=== PATIENT | male | born 1965 | race Caucasian/White ===

== ENCOUNTER 2020-11-25 06:00 | Outpatient (RCR) | payer OTHER, SELFPAY | END 2020-12-11 23:59 | disposition home or self-care (01) | LOC: GPT 06:00 | PROVIDERS: PCP Family Medicine; Referring Provider Family Medicine; Visit Provider Family Medicine | DX: M54.12 Radiculopathy, cervical region (principal); S39.013D Strain of muscle, fascia and tendon of pelvis, subsequent encounter; X58.XXXD Exposure to other specified factors, subsequent encounter | CPT/HCPCS: 97110; 97140; 97162; 97530 ==

== ENCOUNTER 2020-12-12 06:00 | Outpatient (RCR) | payer OTHER, SELFPAY | END 2021-01-11 23:59 | disposition home or self-care (01) | LOC: GPT 06:00 | PROVIDERS: PCP Family Medicine; Referring Provider Family Medicine; Visit Provider Family Medicine | DX: M54.12 Radiculopathy, cervical region (principal) | CPT/HCPCS: 97110; 97140; 97530 ==

== ENCOUNTER 2021-02-09 12:19 | Outpatient (CLI) | payer OTHER, SELFPAY ==
--- NOTE | 2021-02-09 13:18 | MR_ITS ---
WS: [id number] MRI CERVICAL SPINE NONCONTRAST TECHNIQUE: Sagittal T1, T2 and STIR imaging. Axial T2, gradient, and fiesta imaging. CLINICAL INFORMATION: M54.12 - Radiculopathy, cervical region COMPARISON: None. FINDINGS: Straightening of the normal cervical lordosis. No high-grade central canal narrowing. Cord signal is normal. Mild disc bulging C4-C5 and C5-C6. C2-C3: Normal. C3-C4: Minimal disc bulging. Slight effacement of the ventral thecal sac. Spinal canal and foramen ar e patent. C4-C5: Mild disc bulging with a shallow central protrusion. Impingement on the cervical cord with mil d central canal stenosis. Mild bilateral foraminal narrowing. Mild facet arthropathy. C5-C6: Broad-based central disc bulging with slight contact of the cervical cord. Mild central canal stenosis. Mild bilateral foraminal narrowing. Mild facet arthropathy. C6-C7: Tiny shallow right pericentral protrusion. Spinal canal and foramen are patent. C7-T1: No significant disc bulging. Spinal canal and foramen are patent. Visualized brain stem structures: Normal. Prevertebral soft tissues: Normal. MR/MR cervical spin wo con* [id number] IMPRESSION: 1. Straightening of the normal cervical lordosis. Cord signal is normal. 2. Shallow central disc protrusions C4-C5 and C5-C6 with slight contact of the cervical cord and mild central canal stenosis. 3. Mild bilateral C4-C5 and C5-C6 bony foraminal narrowing with mild facet art hropathy. 4. Tiny right pericentral protrusion C5-C6.
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
== END 2021-02-09 12:20 | disposition home or self-care (01) ==
LOC: RADSHAW 12:23
PROVIDERS: PCP Family Medicine; Visit Provider Family Medicine
DX: M54.12 Radiculopathy, cervical region (principal); M50.222 Other cervical disc displacement at C5-C6 level
CPT/HCPCS: 72141; 73140

== ENCOUNTER → 2021-03-10 09:58 | Outpatient (BNVA) | payer OTHER, SELFPAY | PROVIDERS: PCP Family Medicine; Referring Provider Family Medicine; Visit Provider Orthopaedic Surgery | DX: M54.12 Radiculopathy, cervical region (principal); M25.78 Osteophyte, vertebrae | CPT/HCPCS: 72050 ==

== ENCOUNTER → 2021-03-25 09:08 | Outpatient (BNVA) | payer OTHER, SELFPAY | PROVIDERS: PCP Family Medicine; Visit Provider Internal Medicine | DX: Z01.818 Encounter for other preprocedural examination (principal) | CPT/HCPCS: 87635 ==

== ENCOUNTER 2021-03-26 10:32 | Outpatient (CLI) | payer OTHER, SELFPAY ==
--- NOTE | 2021-03-26 10:36 | XR_ITS ---
WS: [id number] LUMBAR SPINE: 5 VIEWS TECHNIQUE: AP, obliques, lateral and L5-S1 spot. HISTORY: M54.16 - Radiculopathy, lumbar region COMPARISON: None available. L5 retrolisthesis by 7 mm. Moderate disc space narrowing at L5-S1. The remaining vertebral bodies are normally aligned. No fractures. Pedicles are all identified. Inadequate oblique imaging on the RIGHT. No high-grade foraminal stenosis identified. The RPO image i s inadequately obliqued. This limits evaluation of the facet joints. The LPO oblique demonstrates elyse y mild narrowing of the L1-2 and L2-3 LEFT foramen. Mild sclerosis along the SI joints. No fusion. XR/XR lumbar spine min 4V [id number] IMPRESSION: 1. L5 retrolisthesis by 7 mm. 2. No fractures. 3. Suboptimal oblique imaging of the lumbar spine. No high-grade foraminal reema nosis identified.
== END 2021-03-26 10:33 | disposition home or self-care (01) ==
PROVIDERS: PCP Family Medicine; Visit Provider Anesthesiology Pain Medicine
DX: M54.16 Radiculopathy, lumbar region (principal)
CPT/HCPCS: 72110

== ENCOUNTER 2021-03-30 06:16 | Day surgery (SDC) | payer OTHER, SELFPAY ==
[2021-03-25 13:14] VITALS: BMI 38.2
[2021-03-30 06:53] VITALS: BP 136/111; PULSE 112; RESP 18; TEMP 36.1; O2SAT 98
[2021-03-30] MEDS: sodium chloride 0.9% 1,000 ML 30 ML IV (07:04)
--- NOTE | 2021-03-30 07:08 | P.HP_ITS ---
Same Day Surgery H&P Indication for Procedure/HPI DATE OF PROCEDURE: March 30, 2021 CHIEF COMPLAINT/INDICATIONFOR SURGICAL PROCEDURE: Family history of colon cancer PREOP DIAGNOSIS: FH PLANNED PROCEDURE: Operation Date: 03/30/21 07:45 Proposed Procedures p Colonoscopy [id number] G0105 Z80.0(Not Applicable) - Demarcus Morfin MD Medications/Allergies* Allergies/Adverse Reactions Allergy/AdvReac Type Severity Reaction Status Date / Time codeine Allergy Intermediate ALGY-Rash Verified 03/30/21 06:49 Current Medications: Generic Name Dose Route Start Last Admin Trade Name Freq PRN Reason Stop Dose Admin Sodium Chloride 1,000 mls @ 30 mls/hr 03/30/21 06:45 03/30/21 07:04 Sodium Chloride 0.9% IV 30 mls/hr .Q24H WILLARD Administration Pertinent History/Comorbid Conditions* Surgical History (Updated 07/30/19 @ 13:57 by Jesus Orr DO) H/O hernia repair Family History (Updated 08/03/19 @ 12:38 by GARDENIA Gage) Denies family history of Anesthesia complication Bleeding disorder Social History Smoking and tobacco status: never smoked Second hand smoke exposure: No Smoking risk assessment/counseling performed?: No Alcohol intake: never Pertinent Exam Findings alert, oriented x 3, clear to auscultation bilaterally, regular rate & rhythm, operative site marked and procedure specific exam findings Recommendations Surgery/Procedure today Coding Level of Care Code Acute [employer] for [employer]uz
--- NOTE | 2021-03-30 07:12 | ANES.PREANE2 ---
Pre-Anesthetic Assessment Pre-Anesthetic Assessment: Height/Weight: Height 1.73 m Weight 114.305 kg Temp Pulse Resp BP Pulse Ox 97.0 F L 112 H 18 136/111 98 03/30/21 06:53 03/30/21 06:53 03/30/21 06:53 03/30/21 06:53 03/30/21 06:53 Preop Diagnosis: FH Proposed Procedure: Operation Date: 03/30/21 07:45 Proposed Procedures p Colonoscopy [id number] G0105 Z80.0(Not Applicable) - Demarcus Morfin MD Was Beta Cornelius taken within 24 hours: N/A Was Clonidine taken within 24 hours: N/A Last intake: Intake Last Liquid Date 03/29/21 Last Liquid Time 11:30 Last Solid Date 03/28/21 Social: Social History: No alcohol and No tobacco Exam: Pre-Anes Outpt Exam: alert, oriented x 3, clear to auscultation bilaterally and regular rate & rhythm Airway: Submandibular: WNL Cervical ROM: WNL MP: 2 Dentition: Full Metabolic: Metabolic: Morbid obesity Musc/skel: Musc/skel: Lower Back Pain and OA/DJD Anesthetic Plan: ASA status: 3 Anesthesia: MAC Risk of > 500 ml blood loss (7ml/kg in children): No Medications/Allergies Current Medications: Current Medications Generic Name Dose Route Start Last Admin Trade Name Freq PRN Reason Stop Dose Admin Sodium Chloride 1,000 mls @ 30 ml s/hr 03/30/21 06:45 03/30/21 07:04 Sodium Chloride 0.9% IV 30 mls/hr .Q24H WILLARD Administration PFSH Anesthesia PFSH: Surgical History H/O hernia repair Family History Denies family history of Anesthesia complication Bleeding disorder Social History Smoking and tobacco status: never smoked Second hand smoke exposure: No Smoking risk assessment/counseling performed?: No Alcohol intake: never Data Anesthesia Cardiac Studies: No Data to Display
[2021-03-30 08:31] VITALS: BP 130/87; PULSE 73; RESP 18; TEMP 36.2; O2SAT 97
[2021-03-30 08:47] VITALS: BP 139/97; PULSE 78; O2SAT 98
--- NOTE | 2021-03-30 14:13 | ANE.PACU2 ---
Inpatient post-anesthesia follow up: Airway intact: Yes Vital signs: Temperature 97.1 F Pulse Rate 78 Respiratory Rate 18 Blood Pressure 139/97 Pulse Oximetry 98 Oxygen Delivery Me thod Room Air Oxygen Flow Rate Fraction of Inspir ed Oxygen Hydration adequate: Yes Nausea and vomiting: No Pain level: 1 Mental status: Baseline
== END 2021-03-30 08:55 | disposition home or self-care (01) ==
PROVIDERS: PCP Family Medicine; Visit Provider Internal Medicine
PROC: 0DJD8ZZ Inspection of Lower Intestinal Tract, Via Natural or Artificial Opening Endoscopic (ICD-10-PCS; CPT 45378; principal; 2021-03-30 07:45)
DX: Z80.0 Family history of malignant neoplasm of digestive organs (principal); E66.01 Morbid (severe) obesity due to excess calories; Z68.38 Body mass index [BMI] 38.0-38.9, adult; M19.90 Unspecified osteoarthritis, unspecified site
CPT/HCPCS: 45378; J2704; J7030

== ENCOUNTER → 2023-08-11 08:14 | Outpatient (BNVA) | payer OTHER, SELFPAY | PROVIDERS: PCP Family Medicine; Visit Provider Nurse Practitioner Family | DX: M19.012 Primary osteoarthritis, left shoulder (principal); M25.512 Pain in left shoulder; M25.562 Pain in left knee | CPT/HCPCS: 73030; 73562 ==

== ENCOUNTER 2024-02-21 06:00 | Outpatient (RCR) | payer OTHER, SELFPAY | END 2024-03-13 23:59 | disposition home or self-care (01) | LOC: GPT 06:00 | PROVIDERS: Visit Provider Orthopaedic Surgery | DX: M54.12 Radiculopathy, cervical region (principal) | CPT/HCPCS: 97110; 97112; 97140; 97162 ==

== ENCOUNTER 2024-03-14 06:00 | Outpatient (RCR) | payer OTHER, SELFPAY | END 2024-04-13 23:59 | disposition home or self-care (01) | LOC: GPT 06:00 | PROVIDERS: Visit Provider Orthopaedic Surgery | DX: M50.11 Cervical disc disorder with radiculopathy, high cervical region (principal) | CPT/HCPCS: 97110; 97112; 97140 ==

== ENCOUNTER 2024-04-14 06:00 | Outpatient (RCR) | payer OTHER, SELFPAY | END 2024-05-11 23:59 | disposition home or self-care (01) | LOC: GPT 06:00 | PROVIDERS: Visit Provider Orthopaedic Surgery | DX: M54.2 Cervicalgia (principal); M54.12 Radiculopathy, cervical region; M25.512 Pain in left shoulder; S43.432D Superior glenoid labrum lesion of left shoulder, subsequent encounter; X58.XXXD Exposure to other specified factors, subsequent encounter | CPT/HCPCS: 97140; 97164 ==